=== PATIENT | male | born 1985 | race African-American/Black ===

== ENCOUNTER 2017-12-07 05:20 | Inpatient (IN) | payer OTHER ==
[2017-12-07] VITALS (12 sets, daily range): BP systolic 128–154; BP diastolic 70–100
[~2017-12-07] VITALS: Ht 172.7 cm; Wt 77.1 kg
[~2017-12-07 05:20] MED LIST: DOCUSATE SODIU100 MG ORAL; IRON325 M1 PO; NAPROXEN500 M2 ORAL
[2017-12-07] MEDS ORDERED: LR 1000ml 1,000 ML IVLG SCH (06:04)
--- NOTE | 2017-12-07 06:06 | Anethesia Preoperative Eval ---
Anesthesia Pre-op PMH/ROS General Date of Evaluation: Dec 07, 2017 Time of Evaluation: 07:31 Anesthesiologist: Neal ASA Score: ASA 1 Mallampati Score Class I : Soft palate, uvula, fauces, pillars visible Class II: Soft palate, uvula, fauces visible Class III: Soft palate, base of uvula visible Class IV: Only hard plate visible Mallampati Classification: Class I Surgeon: Linda Diagnosis: Back Pain Surgical Procedure: ALIF L5-S1 Anesthesia History: none Family History: no anesthesia problems Allergies: Coded Allergies: No Known Allergies (Unverified , 12/06/17) Medications: see eMAR Past Medical History Gastrointestinal/Genitourinary: Reports: other - Hemorrhoids Anesthesia Pre-op Phys. Exam Physician Exam Last Vital Signs Date Time Temp Pulse Resp B/P (MAP) Pulse Ox O2 Delivery O2 Flow Rate FiO2 12/07/17 06:00 97.6 64 18 128/80 (96) 100 97.6 Constitutional: NAD Neurologic: CN 2-12 intact Cardiovascular: RRR Respiratory: CTA Gastrointestinal: S/NT/ND Airway Exam Mallampati Score: Class I MO: full ROM: full Teeth: intact Anesthesia Pre-op A/P Risk Assessment & Plan Assessment: ASA 1 Plan: GA, SED, GlideScope Status Change Before Surgery: No Pre-Antibiotics Dru Grams Ancef IV Given Within 1 Hr of Incision: Yes Time Given: 07:46 Manohar De Jesus MD Dec 07, 2017 06:06
[2017-12-07] MEDS ORDERED: Zemuron 50mg/5ml Inj IV ONE (06:11)
[2017-12-07] MEDS ORDERED: Dexamethasone 20mg/5ml ONE (06:13)
[2017-12-07] MEDS ORDERED: Atropine Sulfate 0.4mg/ml inj IVP PRN (06:15)
[2017-12-07] MEDS ORDERED: fentaNYL 100 mcg/2 mL IV PRN (06:15)
[2017-12-07] MEDS ORDERED: oxyCODONE HCL/Acetaminophen 5/325mg ORAL PRN (06:15)
[2017-12-07] MEDS ORDERED: Norco 5mg/325mg tab ORAL PRN (06:15)
[2017-12-07] MEDS ORDERED: Dexamethasone 20mg/5ml IVP SCH (06:15)
[2017-12-07] MEDS ORDERED: Hydromorphone 0.5mg/0.5ml inj IVP PRN (06:15)
[2017-12-07] MEDS ORDERED: Midazolam 2mg/2ml Inj IVP PRN (06:15)
[2017-12-07] MEDS ORDERED: DiphenhydrAMINE 50mg/ml Inj IVP PRN (06:15)
[2017-12-07] MEDS ORDERED: Metoclopramide 10mg/2ml Inj IVP PRN (06:15)
[2017-12-07] MEDS ORDERED: Ketorolac 30mg Inj IV PRN ×2 (06:15)
[2017-12-07] MEDS ORDERED: HYDROcodone/Acetamin 7.5/325 tab ORAL PRN (06:15)
[2017-12-07] MEDS ORDERED: LORazepam Inj 2mg/ml 1ml IV PRN (06:15)
[2017-12-07] MEDS ORDERED: Meperidine 50mg/ml Inj(FOR RIGORS ONLY) IVP PRN (06:15)
[2017-12-07] MEDS ORDERED: Labetalol 5mg/ml 20ml vial IV PRN (06:15)
[2017-12-07] MEDS ORDERED: Ropivacaine 5mg/ml Vial 30ml INJ ONE (06:29)
[2017-12-07] MEDS ORDERED: Thrombin 5000 units TOPIC ONE (06:29)
[2017-12-07] MEDS ORDERED: Lidocaine 1% Plain 30 ml INJ ONE ×3 (06:29→09:28)
[2017-12-07] MEDS ORDERED: Bacitracin 50000 Units Vial ONE (06:30)
[2017-12-07] MEDS ORDERED: Gelfoam Size TOPIC ONE (06:30)
[2017-12-07] MEDS ORDERED: fentaNYL 100 mcg/2 mL IV ONE ×2 (06:40→09:06)
[2017-12-07] MEDS ORDERED: Sodium Chloride 10ml vial INJ ONE (06:41)
[2017-12-07] MEDS ORDERED: Lidocaine 1% MPF 10mg/ml 5ml ONE (06:41)
[2017-12-07] MEDS ORDERED: Ketamine 500mg Inj ONE (06:41)
[2017-12-07] MEDS ORDERED: Heparin 5000 units/ml inj ONE (06:54)
[2017-12-07] MEDS ORDERED: Acetaminophen (Non formulary) 100 ML IV ONE (07:00)
[2017-12-07] MEDS ORDERED: ceFAZolin sod 1 GM in D5W 55 ML IVPB ONE (07:00)
--- NOTE | 2017-12-07 07:02 | Immediate Post-Op Evaluation ---
Immediate Post-Op Evalulation Immediate Post-Op Evalulation Procedure: ALIF L5-S1 Date of Evaluation: Dec 07, 2017 Time of Evaluation: 10:37 IV Fluids: 1000 LR Blood Products: 0 Estimated Blood Loss: 50 Urinary Output: 0 Blood Pressure Systolic: 143 Blood Pressure Diastolic: 99 Pulse Rate: 66 Respiratory Rate: 16 O2 Sat by Pulse Oximetry: 100 Temperature (Fahrenheit): 98.4 Pain Score (1-10): 2 Nausea: No Vomiting: No Complications 0 Patient Status: awake, reacts, patent, extubated, none Hydration Status: adequate Dru Grams Ancef IV Given Within 1 Hr of Incision: Yes Time Given: 07:46 Maonhar De Jesus MD Dec 07, 2017 07:02
[2017-12-07] MEDS ORDERED: Propofol 1,000mg/ 100ml btl IV ONE (07:30)
[2017-12-07] MEDS ORDERED: LR 1000ml ONE (07:30)
[2017-12-07] MEDS ORDERED: Sterile Water Irrig 1000ml IRRIG ONE (07:30)
[2017-12-07] MEDS ORDERED: NS Irrig 1000ml ONE (07:30)
--- NOTE | 2017-12-07 07:45 | Pre-Procedure Note/Attestation ---
Pre-Procedure Note/Attestation Complete Prior to Procedure Planned Procedure: not applicable Procedure Narrative: ALIF with anterior plate L5-S1 Indications for Procedure Pre-Operative Diagnosis: Trauma pars fracture, severe back pain Attestation I attest that I discussed the nature of the procedure; its benefits; risks and complications; and alternatives (and the risks and benefits of such alternatives ), prior to the procedure, with the patient (or the patient's legal phlebotomy services representative). I attest that, if there was a reasonable possibility of needing a blood transfusion, the patient (or the patient's legal phlebotomy services representative) was given the [facility] standardized written summary, pursuant to the [place] Blood Safety Act ([place] Health and Safety Code # 1645, as amended). I attest that I re-evaluated the patient just prior to the surgery and that there has been no change in the patient's H&P, except as documented below: TAD PORTER Dec 07, 2017 07:45
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
--- NOTE | 2017-12-07 09:53 | Brief Operative Note ---
Immediate Post Operative Note Operative Note Pre-op Diagnosis: Trauma pars fracture, severe back pain Procedure: L5S1 ALIF L5-S1 Plate SSEP Fusion Osteo-4 allograft Post-op Diagnosis: same as pre-op Findings: consistent w/pre-op dx studies Surgeon: Linda Underwood Additional Surgeons: Oliver VICTORIA Anesthesiologist: Neal VICTORIA Anesthesia: general Specimen: yes Complications: none Condition: stable Fluids: anesthesia Estimated Blood Loss: minimal Drains: none Implant(s) used?: Yes TAD PORTER Dec 07, 2017 09:53
[2017-12-07] MEDS ORDERED: Naloxone 0.4mg/ml Inj IVP PRN (10:00)
--- NOTE | 2017-12-07 10:01 | 48 Hour Post Anesthesia Eval ---
Post Anesthesia Evaluation Procedure: ALIF L5-S1 Date of Evaluation: Dec 07, 2017 Time of Evaluation: 12:52 Blood Pressure Systolic: 123 0: 72 Pulse Rate: 67 Respiratory Rate: 18 Temperature (Fahrenheit): 98.5 O2 Sat by Pulse Oximetry: 100 Airway: patent Nausea: No Vomiting: No Pain Intensity: 3 Hydration Status: adequate Cardiopulmonary Status: Stable Mental Status/LOC: patient returned to baseline Follow-up Care/Observations: 0 Post-Anesthesia Complications: 0 Follow-up care needed: N/A Manohar De Jesus MD Dec 07, 2017 10:01
[2017-12-07] MEDS ORDERED: Neostigmine 1mg/ml 10ml Inj ONE (10:03)
[2017-12-07] MEDS ORDERED: Glycopyrrolate 0.2mg/ml 1ml Vial ONE (10:03)
[2017-12-07] MEDS ORDERED: PCA HYDROmorphone 1mg/ml 30 ML IV PRN ×2 (11:00)
[2017-12-07] MEDS ORDERED: Rate Change PCA 1 Each MISC PRN (11:15)
--- NOTE | 2017-12-07 11:41 | Diagnostic Imaging Report ---
INDICATION: Pain, intraoperative TECHNIQUE: Intraoperative imaging Fluoroscopy time: 20.3 seconds Total dose: [id number] mGym2 Total number of images: 4 COMPARISON: None FINDINGS: Intraoperative images and demonstrates surgical tool anterior to what is presumably the L5-S1 disc. Subsequent images document anterior fusion and placement of a disc prosthesis at L5-S1 IMPRESSION: Intraoperative imaging, as described
[2017-12-07] MEDS ORDERED: Chloraseptic Spray 20mL Bottle ORAL PRN (12:56)
[2017-12-07] MEDS: D5 1/2NS 1,000 ML IV SCH ×2 (13:37→21:08)
[2017-12-07] MEDS: ceFAZolin sod 1 GM in D5W 55 ML IV SCH (16:21)
--- NOTE | 2017-12-07 16:30 | Operative Note - Dictated ---
DATE OF OPERATION: 12/07/2017 ADMITTING/PREOPERATIVE DIAGNOSIS: Posttraumatic pars fracture. POSTOPERATIVE DIAGNOSIS: Posttraumatic pars fracture. OPERATIVE PROCEDURES: 1. Anterior L5-S1 interbody fusion with implant device. 2. Placement of osteopromotive material. 3. Anterior internal plate fixation. 4. SSEP monitoring. 5. High-power magnification. 6. Intraoperative fluoroscopy interpreted by surgeons. SURGEON: Kar Mckeon, Ph.D., M.D. CO-SURGEON: King Boyd M.D., Vascular Surgery. Please see separate report for exposure and closure. ANESTHESIA: Dr. De Jesus general with intubation. ESTIMATED BLOOD LOSS: Less than 50 mL. COMPLICATIONS: None. POSTOP CONDITION: Good/stable. SPECIMEN: Disc fragments to pathology. DESCRIPTION OF PROCEDURE: The patient was placed in the supine position. Abdomen was sterilely prepped and draped free in usual sterile fashion and draped free. Longitudinal incision appropriately made midline. Please see separate report by Dr. Boyd, Dr. Mckeon assist. Exposure of the L5-S1 interval was undertaken with sympathetic nerves moved laterally. Not cut. Spine needle bent at 3 mm so as to avoid penetration greater than 3 mm in the disc space was placed percutaneously under direct observation under sterile conditions and AP and lateral radiographs were obtained under sterile conditions demonstrating the correct level as L5-S1 and midline. Midline marked. Needle removed. Annulotomy was performed followed with diskectomy too, but not through the posterior longitudinal ligament. Endplate denuding of cartilaginous endplates to bleeding bone subchondral undertaken. Subchondral bone integrity maintained. Appropriate trial determined. Aero-L prosthesis, 8 degrees lordosis, appropriate width and depth was placed into position with retention with the insertion device that prevents penetration. The Aero-L device was packed with a combination of autograft and synthetic bone osteopromotive material prior to insertion. Fit excellent. AP lateral radiographs obtained demonstrating correct alignment. Four compressive internal fixation wings were placed sequentially as indicated. Fit excellent. Retractor maintained in place. The insertion device removed. Excellent positioning. Graft incorporated in fibrin glue. Anterior internal fixation plate of the appropriate dimensions with screws in a compressive fashion placed and locked into position. AP and lateral radiographs demonstrated excellent alignment and position. Wound irrigated with antibiotic-containing saline. SSEP monitoring stable at all times. Please see closure. After closure and application of sterile bandage, the patient was awakened, extubated in the operating room, and transported to postop recovery in good stable condition. Kar Mckeon M.D. DR: NAIF JOB#: [id number] CC:
--- NOTE | 2017-12-07 16:30 | Operative Note - Dictated ---
DATE OF OPERATION: 12/07/2017 VASCULAR SURGEON: King Boyd M.D. SPINE SURGEON: Kar Mckeon M.D. PREOPERATIVE DIAGNOSIS: Degenerative disk disease. POSTOPERATIVE DIAGNOSIS: Degenerative disk disease. PROCEDURE: Anterior retroperitoneal exposure of L5-S1 vertebral interspace. INDICATIONS: The patient is a very pleasant gentleman, who is seen in my office prior to surgery. He has been made aware of risks of surgery including vascular injury, deep venous thrombosis, and retrograde ejaculation complications. He understands these risks and does wish to proceed. DESCRIPTION OF FINDINGS: A low vertical midline incision was used. Left retroperitoneal approach was used. There was no peritoneal or ureteral violation. There was no vascular injury. Exposure of L5-S1 was obtained below the iliac bifurcation and confirmed using fluoroscopy. On completion, the peritoneum was intact. The ureter was carefully examined and intact and iliac vessels were intact. There were palpable femoral and pedal pulses on completion. BLOOD LOSS: 50 mL. DESCRIPTION OF PROCEDURE: The patient was taken to the operative room. General anesthesia was used. Appropriate time-outs were taken. The patient's abdomen was prepped and draped. A low vertical midline incision made infraumbilically. The anterior fascia was incised longitudinally in midline. A plane identified posterior to the left rectus abdominis developed posterolaterally to the patient's left. The retroperitoneal space was bluntly entered below the arcuate line. The peritoneum and ureter were mobilized towards the patient's right exposing the left common iliac artery and vein. The dissection was carried to the undersurface of the left common iliac vein and middle sacral artery and vein were ligated with vascular clips and divided. This allowed us to retract the left common iliac artery and vein superiorly and laterally exposing the anterior surface of L5-S1. The Omni retractor set in place. Fluoroscopy was used to confirm the appropriate level. Instrumentation was performed at L5-S1 will be dictated separately. On completion, the retractor was gently removed. The peritoneum and ureter were intact. The iliac vessels were intact. The anterior fascia was then closed with #1 PDS in a running fashion. The skin and subcutaneous tissue were closed with 3-0 Vicryl and 4-0 Monocryl in a running subcuticular closure technique. Estimated blood loss 50 mL. Complications none. King Boyd M.D. DR: Jitendra JOB#: [id number] CC: Seferino Kelly M.D. ; FAX#: [phone]
[2017-12-07] MEDS ORDERED: Prep H Ointment 57gm RECTAL PRN (18:00)
[2017-12-07] MEDS ORDERED: PCA shift volume MISC SCH (19:00)
[2017-12-07] MEDS: Dronabinol 2.5mg Cap ORAL SCH (21:07)
[2017-12-08] VITALS: BP 119/78
[2017-12-08] MEDS: ceFAZolin sod 1 GM in D5W 55 ML IV SCH ×2 (00:43→10:00)
[2017-12-08] MEDS: D5 1/2NS 1,000 ML IV SCH ×4 (02:43→20:53)
[2017-12-08 04:00] VITALS: BP 139/84
[2017-12-08] MEDS ORDERED: Rate Change PCA 1 Each MISC PRN (05:30)
[2017-12-08] MEDS: Dronabinol 2.5mg Cap ORAL SCH ×3 (05:58→20:53)
--- NOTE | 2017-12-08 06:15 | Progress Note ---
DATE: 12/08/2017 ACUTE PAIN MANAGEMENT PHYSICIAN PROGRESS NOTE MEDICATIONS: Medication administration record reviewed. Medications include Fioricet, Mylanta, Soma, Catapres, Benadryl, Marinol, Pepcid, Star, Dilaudid, Narcan, Zofran, Chloraseptic [place], Preparation-H, and Phenergan. LABORATORY STUDIES: No interval laboratory studies. OBJECTIVE: VITAL SIGNS: Afebrile, pulse 78, respirations 18, blood pressure 139/84, and oxygen saturation 99%. I spent over 60 minutes in consultation today. I saw the patient at the bedside with the nurse, JOANN Peters. The patient is alert and oriented x3. He is moving all extremities x4. He has 5/5 dorsiflexion and 5/5 plantar flexion in bilateral lower extremities. Zendejas catheter remains in place. Sequential compression pneumatic devices are functioning. The patient is breathing comfortably and appears in no acute distress. The patient has been tolerating his scheduled Marinol every 8 hours without any adverse side effects, or oversedation. I will continue this dosing for baseline analgesia. The patient denies any nausea symptoms. After his ALIF, anterior interbody fusion surgery, the patient has limited bowel sounds. We will continue him NPO except for medications at this time until there is further improvement in his bowel function, as evidenced with positive flatus. He remains on IV fluids for hydration at a generous rate of 150 mL an hour. Despite the patient's preoperative anemia, he has normal vital signs without any tachycardia. I did remind the patient that he has multiple p.r.n. pain medications available including as needed Fioricet, as needed Soma, as needed Star, and even breakthrough Dilaudid injections. I did encourage the patient to request these medications to use in combination with the [employer] unit to help him start ambulating with physical therapy later today. Incentive spirometer ____ to the bedside to encourage good pulmonary toilet. Overall, the patient is progressing on-schedule. We will see how he ambulates with physical therapy later today, and continue to wait for improve bowel function prior to advancing his diet. The pain control seems to be adequate at this moment. Leobardo Yuan M.D. DR: MANE JOB#: [id number] CC:
[2017-12-08] MEDS: PCA shift volume MISC SCH ×2 (07:08→19:00)
[2017-12-08 08:00] VITALS: BP 142/96
[2017-12-08 12:00] VITALS: BP 151/88
[2017-12-08 16:20] VITALS: BP 148/94
[2017-12-08 20:00] VITALS: BP 136/90
[2017-12-08] MEDS: HYDROmorphone 1mg/ml Carpuject SUBQ PRN (22:03)
[2017-12-09] VITALS: BP 130/79
[2017-12-09 04:00] VITALS: BP 120/70
[2017-12-09] MEDS: Dronabinol 2.5mg Cap ORAL SCH ×3 (06:20→22:00)
[2017-12-09] MEDS: D5 1/2NS 1,000 ML IV SCH ×3 (06:44→16:57)
[2017-12-09 09:00] VITALS: BP 128/83
[2017-12-09 12:00] VITALS: BP 153/104
--- NOTE | 2017-12-09 12:00 | Progress Note ---
DATE: 12/09/2017 ACUTE PAIN MANAGEMENT PHYSICIAN PROGRESS NOTE MEDICATIONS: Medication administration record reviewed. Medications include [employer] Dilaudid, IV fluids, Marinol, and Pepcid. P.r.n. medications include Preparation-H, Chloraseptic, Narcan, Benadryl, Catapres, Soma, [place], Dilaudid, Mylanta, Zofran, Fioricet, and Phenergan. LABORATORY STUDIES: No interval laboratory studies. OBJECTIVE: VITAL SIGNS: Within normal limits. Afebrile, pulse 80, respirations 18, blood pressure 120/70, and oxygen saturation 100% on room air. I spent over 60 minutes in consultation today. I saw the patient at the bedside after discussion with the overnight nurse RN, Travis. The patient is voiding urine well. The urine is quite dilute, so I will decrease his IV fluids from 150 mL an hour to 100 mL an hour. The patient has been compliant using his incentive spirometer. The patient is moving all extremities x4. He did ambulate twice with physical therapy yesterday. After physical therapy training this morning, I will hope that the physical therapist will permit the patient to ambulate ad-renea with assistance. I have asked the nursing team to place a front wheel walker at the bedside to encourage ambulation. The patient still has not passed flatus after his ALIF, anterior lumbar interbody fusion procedure. Therefore, we will continue him on NPO except for medications and sips for now, awaiting improved GI function. Once the patient does start passing flatus, I expect we will begin advancing the patient's diet. The patient has been using the [employer] Dilaudid less frequently. Therefore, I will discontinue it. Presently, he will continue with p.r.n. breakthrough doses of Dilaudid, Paxinos, and Soma, which he has tolerated in the past. I also will remain on his scheduled q.8 hours dosing of Marinol for baseline analgesia. The patient does have a supply of Paxinos and Soma for home usage already. We will continue supportive care while we await the patient to improve ambulation and gastrointestinal function. The patient has no nausea symptoms presently. Leobardo Yuan M.D. DR: CHANELL JOB#: [id number] CC:
[2017-12-09] MEDS: HYDROmorphone 1mg/ml Carpuject SUBQ PRN (13:11)
[2017-12-09] MEDS ORDERED: Magnesium Citrate Liq Btl ORAL SCH (15:00)
[2017-12-09 16:00] VITALS: BP 145/86
[2017-12-09] MEDS: HYDROcodone/Acetamin 10/325 tab ORAL PRN (16:21)
[2017-12-09 20:00] VITALS: BP 147/89
[2017-12-10] VITALS: BP 138/80
[2017-12-10] MEDS: HYDROcodone/Acetamin 10/325 tab ORAL PRN (01:18)
[2017-12-10 04:00] VITALS: BP 124/73
[2017-12-10] MEDS: Dronabinol 2.5mg Cap ORAL SCH ×3 (05:47→21:23)
[2017-12-10] MEDS ORDERED: Magnesium Citrate Liq Btl ORAL ONE (06:00)
[2017-12-10 08:00] VITALS: BP 143/92
[2017-12-10] MEDS: HYDROmorphone 1mg/ml Carpuject SUBQ PRN ×2 (09:12→17:14)
[2017-12-10 12:00] VITALS: BP 129/70
[2017-12-10 16:00] VITALS: BP 134/81
--- NOTE | 2017-12-10 16:45 | Progress Note ---
DATE: 12/10/2017 ACUTE PAIN MANAGEMENT PHYSICIAN PROGRESS NOTE MEDICATIONS: Medication administration record reviewed. Medications include Pepcid and Marinol. P.r.n. medications include Benadryl, Soma, [place], Dilaudid, Mylanta, Zofran, Preparation-H, and Narcan. LABORATORY STUDIES: No interval laboratory studies. OBJECTIVE: VITAL SIGNS: Within normal limits. Afebrile, pulse 70, respirations 16, blood pressure 124/73, and oxygen saturation 100% on room air. I spent over 60 minutes in consultation today. I saw the patient at the bedside with the nurse RN, Travis. The patient has started passing flatus, so his diet was advanced per the surgeon, Dr. Mckeon. The patient has increased his ambulation. A front wheel walker was left at the bedside to encourage movement in and out of bed. As the patient's diet was advanced, he did tolerate food with a healthy appetite. I Hep-Lock his IV to make it easier to move in and out of bed. The patient has been compliant using his incentive spirometer. The scheduled Marinol q. 8 hours has been effective for baseline analgesia and breakthrough doses of Soma and Deputy have been helpful to moderate his pain complaints. Dr. Mckeon, ordered magnesium citrate as a laxative to help with a bowel movement after his ALIF procedure. The patient did drink 300 mL yesterday evening. He did have mild nausea with emesis, so we will re-dose him this morning with his breakfast. Hopefully, taking the medication with breakfast will be less nauseating. The patient is having some abdominal cramps, which is expected. Hopefully, with improved ambulation and more time for the laxative taking effect, the patient will have a bowel movement later today and be able to discharge home to the care of his girlfriend. The patient already has a supply of Deputy and Soma for home usage. The patient has normal vital signs and denies any shortness of breath. Leobardo Yuan M.D. DR: CHANELL JOB#: [id number] CC:
[2017-12-10 20:00] VITALS: BP 142/87
[2017-12-11] VITALS: BP 111/67
[2017-12-11 04:00] VITALS: BP 120/70
[2017-12-11] MEDS: Dronabinol 2.5mg Cap ORAL SCH (05:50)
[2017-12-11 08:00] VITALS: BP 197/87
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
== END 2017-12-11 10:45 | disposition home or self-care (01) | DRG 460 ==
LOC: SDSOVERFLO 05:20 → 3E 12:10
PROC: 4A11X4G Monitoring of Peripheral Nervous Electrical Activity, Intraoperative, External Approach (ICD-10-PCS; principal; 2017-12-07 07:00)
PROC: 0SG30A0 Fusion of Lumbosacral Joint with Interbody Fusion Device, Anterior Approach, Anterior Column, Open Approach (ICD-10-PCS; principal; 2017-12-07 07:00)
PROC: 0ST40ZZ Resection of Lumbosacral Disc, Open Approach (ICD-10-PCS; principal; 2017-12-07 07:00)
DX: M48.37 Traumatic spondylopathy, lumbosacral region (principal); M51.37 Other intervertebral disc degeneration, lumbosacral region; G89.18 Other acute postprocedural pain; D64.9 Anemia, unspecified; K64.9 Unspecified hemorrhoids
CPT/HCPCS: 36415; 72020; 76001; 86850; 86900; 86901; 87081; 94003; 94150; J2405; J2710

== ENCOUNTER 2018-08-02 05:40 | Day surgery (SDC) | payer OTHER ==
[~2018-08-02] VITALS: Ht 175.3 cm; Wt 77.1 kg
[2018-08-02] VITALS (9 sets, daily range): BP systolic 110–125; BP diastolic 51–73
[2018-08-02] MEDS ORDERED: oxyCONTIN 20mg tab ORAL ONE (06:00)
[2018-08-02] MEDS ORDERED: ceFAZolin 1gm IVPB IVPB ONE ×2 (06:00)
[2018-08-02] MEDS ORDERED: celeBREX 200mg Cap **SURGERY PATIENTS ONLY ORAL ONE (06:00)
[2018-08-02] MEDS ORDERED: NKM (06:33)
[2018-08-02] MEDS ORDERED: HYDROmorphone 1mg/ml Carpuject SUBQ PRN (07:45)
[2018-08-02] MEDS ORDERED: Tylenol #3 tab (300mg/30mg) ORAL PRN (07:45)
[2018-08-02] MEDS ORDERED: D5 1/2NS 1,000 ML IV SCH (07:45)
[2018-08-02] MEDS ORDERED: HYDROcodone/Acetamin 5/325 tab ORAL PRN (07:45)
--- NOTE | 2018-08-02 07:45 | Pre-Procedure Note/Attestation ---
Pre-Procedure Note/Attestation Complete Prior to Procedure Planned Procedure: left Procedure Narrative: shoulder arthroscopy, sad, possible slap repair Indications for Procedure Pre-Operative Diagnosis: left shoulder slap tear, impingement Attestation I attest that I discussed the nature of the procedure; its benefits; risks and complications; and alternatives (and the risks and benefits of such alternatives ), prior to the procedure, with the patient (or the patient's legal off premise service representative). I attest that, if there was a reasonable possibility of needing a blood transfusion, the patient (or the patient's legal off premise service representative) was given the [facility] standardized written summary, pursuant to the Juliano Javier Blood Safety Act ([place] Health and Safety Code # 1645, as amended). I attest that I re-evaluated the patient just prior to the surgery and that there has been no change in the patient's H&P, except as documented below: Rohan Field MD August 02, 2018 07:45
--- NOTE | 2018-08-02 07:45 | Operative Note - PDOC ---
Operative Note Operative Note Pre-op Diagnosis: left shoulder slap tear, impingement Procedure: se op report Post-op Diagnosis: same as pre-op plus Operative Findings: consistent w/pre-op dx studies Anesthesia: regional Specimen: none Complications: none Condition: stable Estimated Blood Loss: none Implant(s) used?: No Rohan Field MD August 02, 2018 07:45
[2018-08-02] MEDS ORDERED: LR 1000ml 1,000 ML IVLG SCH (10:13)
--- NOTE | 2018-08-02 10:13 | Anethesia Preoperative Eval ---
Anesthesia Pre-op PMH/ROS General Date of Evaluation: August 02, 2018 Anesthesiologist: Sheng ASA Score: ASA 2 Mallampati Score Class I : Soft palate, uvula, fauces, pillars visible Class II: Soft palate, uvula, fauces visible Class III: Soft palate, base of uvula visible Class IV: Only hard plate visible Mallampati Classification: Class II Surgeon: Emir Diagnosis: Left shoulder impingement Surgical Procedure: Left shoulder arthroscopy Anesthesia History: none Family History: no anesthesia problems Allergies: Coded Allergies: No Known Allergies (Unverified , 08/02/18) Medications: see eMAR Patient NPO?: Yes NPO Date: August 01, 2018 NPO Time: 22:00 Past Medical History Cardiovascular: Denies: HTN, CAD, PA, valve dz, arrhythmia, other Pulmonary: Denies: asthma, COPD, JOSLYN, other Gastrointestinal/Genitourinary: Reports: other - anorexia; Denies: GERD, CRI, ESRD Neurologic/Psychiatric: Denies: dementia, CVA, depression/anxiety, TIA, other Endocrine: Denies: DM, hypothyroidism, steroids, other HEENT: Denies: cataract (L), cataract (R), glaucoma, [place] (L), [place] (R), other Hematology/Immune: Denies: anemia, DVT, bleeding disorder, other Musculoskeletal/Integumentary: Denies: OA, RA, DJD, DDD, edema, other PSxH Narrative: lumbbar lami Anesthesia Pre-op Phys. Exam Physician Exam Last Vital Signs Date Time Temp Pulse Resp B/P (MAP) Pulse Ox O2 Delivery O2 Flow Rate FiO2 08/02/18 06:35 Room Air 08/02/18 06:33 97.9 62 18 111/67 100 Constitutional: NAD Cardiovascular: RRR Respiratory: CTA Airway Exam Mallampati Score: Class II MO: full ROM: full Teeth: intact, broken - top, midline-left tooth chipped/broken Anesthesia Pre-op A/P Labs see chart Risk Assessment & Plan Assessment: ASA II Plan: GA Status Change Before Surgery: No Pre-Antibiotics Drug: Ancef 1g Given Within 1 Hr of Incision: Yes Meredith Auguste MD August 02, 2018 10:13
[2018-08-02] MEDS ORDERED: Midazolam 2mg/2ml Inj IVP PRN (10:15)
[2018-08-02] MEDS ORDERED: Metoclopramide 10mg/2ml Inj IVP PRN (10:15)
[2018-08-02] MEDS ORDERED: Hydromorphone 0.5mg/0.5ml inj IVP PRN (10:15)
[2018-08-02] MEDS ORDERED: fentaNYL 100 mcg/2 mL IV PRN (10:15)
[2018-08-02] MEDS ORDERED: Ketorolac 30mg Inj IV PRN (10:15)
[2018-08-02] MEDS ORDERED: DiphenhydrAMINE 50mg/ml Inj IVP PRN (10:15)
[2018-08-02] MEDS ORDERED: LORazepam Inj 2mg/ml 1ml IV PRN (10:15)
[2018-08-02] MEDS ORDERED: Lidocaine 1% MPF 10mg/ml 5ml ONE (10:22)
[2018-08-02] MEDS ORDERED: Propofol 200mg/20ml IV ONE (10:22)
[2018-08-02] MEDS ORDERED: Ropivacaine 5mg/ml Vial 30ml INJ ONE (11:42)
[2018-08-02] MEDS ORDERED: Dexamethasone 4mg/ml vial ONE (11:58)
[2018-08-02] MEDS ORDERED: NS Irrig 4000ml IRRIG ONE (12:00)
[2018-08-02] MEDS ORDERED: Zemuron 50mg/5ml Inj IV ONE (12:00)
[2018-08-02] MEDS ORDERED: LR 1000ml ONE (12:00)
[2018-08-02] MEDS ORDERED: EPINEPHrine 1mg/1ml Amp ONE (12:24)
[2018-08-02] MEDS ORDERED: Kenalog-40 1ml Vial ONE (12:24)
--- NOTE | 2018-08-02 13:36 | Immediate Post-Op Evaluation ---
Immediate Post-Op Evalulation Immediate Post-Op Evalulation Procedure: Left shoulder arthroscopy, slap repair Date of Evaluation: August 02, 2018 Time of Evaluation: 13:38 IV Fluids: 900 Blood Products: 0 Estimated Blood Loss: min Urinary Output: 0 Blood Pressure Systolic: 111 Blood Pressure Diastolic: 63 Pulse Rate: 66 Respiratory Rate: 16 O2 Sat by Pulse Oximetry: 100 Temperature (Fahrenheit): 97 Pain Score (1-10): 0 Nausea: No Vomiting: No Complications 0 Patient Status: awake, reacts, patent, none Hydration Status: adequate Drug: Ancef 1g Given Within 1 Hr of Incision: Yes Meredith Auguste MD August 02, 2018 13:36
--- NOTE | 2018-08-02 13:36 | 48 Hour Post Anesthesia Eval ---
Post Anesthesia Evaluation Procedure: Left shoulder arthroscopy, slap repair Date of Evaluation: August 02, 2018 Airway: patent Nausea: No Vomiting: No Pain Intensity: 0 Hydration Status: adequate Cardiopulmonary Status: at baseline Mental Status/LOC: patient returned to baseline Post-Anesthesia Complications: 0 Follow-up care needed: ready to discharge Meredith Auguste MD August 02, 2018 13:36
--- NOTE | 2018-08-02 19:01 | Operative Note - Dictated ---
DATE OF OPERATION: 08/02/2018 PREOPERATIVE DIAGNOSIS: Left shoulder SLAP tear. POSTOPERATIVE DIAGNOSES: 1. Left shoulder SLAP tear. 2. Partial supraspinatus rotator cuff tear PROCEDURES: 1. Left shoulder extensive intra-articular debridement. 2. Left shoulder SLAP repair. SURGEON: Rohan Field M.D. ANESTHESIA: Interscalene with general. INDICATION FOR PROCEDURE: This is a pleasant gentleman who has had progressive left shoulder pain, difficulty with overhead activities. He had an MRI, which showed a tear of the superior labrum. He failed conservative treatment and elected to undergo left shoulder arthroscopy, labral stabilization . Risks, limitations, expectations, and complications of procedure were discussed in detail. All questions addressed. DESCRIPTION OF PROCEDURE: After informed consent was obtained, the patient was brought to the operating room. The patient was placed under interscalene general anesthesia. The patient was then carefully placed in beach-chair position. Left shoulder was prepped and draped in a sterile manner. Time-out was performed. Posterolateral stab incision was then made. Trocar introduced in the glenohumeral joint. Systematic tour of the shoulder was performed. There was fragment of the anterior labrum that was floating within the glenohumeral margin. The superior labrum was torn. . There was partial articular sided rotator cuff tear as well. At this point, shaver was then used to debride the torn edge of the labrum and soft tissue along the superior glenoid was debrided to a nice bleeding bed. Arthroscopic anchor was then placed and the superior labrum was reattached to the superior glenoid. Once was done, partial debridement of the articular sided rotator cuff tear was performed. Once that was done, the instruments were removed. Portal sites were closed with 3-0 Monocryl sutures. Steri-Strips and sterile dressing were applied. The patient was awoken and taken to recovery room with stable vital signs. ESTIMATED BLOOD LOSS: None. COMPLICATIONS: None. SPECIMENS: None. IMPLANTS: One Biomet anchor. Rohan Field M.D. DR: Nash JOB#: [id number] CC:
== END 2018-08-02 16:50 | disposition home or self-care (01) ==
LOC: SUR 05:40
DX: S43.402A Unspecified sprain of left shoulder joint, initial encounter (principal); M75.112 Incomplete rotator cuff tear or rupture of left shoulder, not specified as traumatic; X58.XXXA Exposure to other specified factors, initial encounter; Y92.9 Unspecified place or not applicable
CPT/HCPCS: 29807; 29823; J0690; J1100; J1170; J1885; J2250; J2405; J2704; J2795; J3010; 94003; 94150; C1713